=== PATIENT | female | born 1990 | race Two or more races ===

== ENCOUNTER 2021-05-21 22:32 | Emergency (ER) | payer MEDICAID ==
[~2021-05-21] VITALS: Ht 175.3 cm; Wt 79.4 kg
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
--- NOTE | 2021-05-22 00:03 | NUR ---
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
[2021-05-22] MEDS ORDERED: ACETAMINOPHEN ES 500 MG TABLET ONE ×2 (00:12→00:25)
[2021-05-22] MEDS ORDERED: ONDANSETRON 4 MG TAB.RAPDIS ONE (00:12)
[2021-05-22] MEDS: ACETAMINOPHEN ES 500 MG TABLET PO ONE (00:16)
[2021-05-22] MEDS: ONDANSETRON 4 MG TAB.RAPDIS SL ONE (00:16)
--- NOTE | 2021-05-22 00:18 | NUR ---
URINE COLLECTED SENT TO LAB
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
[2021-05-22 02:57] VITALS: BP 132/91
== END 2021-05-22 02:57 | disposition home or self-care (01) ==
LOC: ER 22:37
DX: S01.511A Laceration without foreign body of lip, initial encounter (principal); S09.90XA Unspecified injury of head, initial encounter; Z60.2 Problems related to living alone; Y04.0XXA Assault by unarmed brawl or fight, initial encounter; Y93.89 Activity, other specified; Y92.89 Other specified places as the place of occurrence of the external cause; Y99.8 Other external cause status
CPT/HCPCS: 70450; 70486; 72125; 84703; 99284; Q0162